=== PATIENT | female | born 1930 | race Two or more races ===

== ENCOUNTER 2017-04-13 11:53 | Emergency (ER) | payer MEDICARE, BC ==
[~2017-04-13] VITALS: Ht 152.4 cm; Wt 81.6 kg
--- NOTE | 2017-04-13 11:57 | NUR ---
pt is in room #2a. dr Pfeiffer evaluated the pt.
[2017-04-13] MEDS ORDERED: [UNRECOGNIZED DRUG - REMARK] (12:11)
[2017-04-13] MEDS ORDERED: [UNRECOGNIZED DRUG - REMARK] (12:11)
[2017-04-13] MEDS ORDERED: [UNRECOGNIZED DRUG - REMARK] (12:12)
[2017-04-13] MEDS ORDERED: [UNRECOGNIZED DRUG - REMARK] (12:12)
[2017-04-13] MEDS ORDERED: [UNRECOGNIZED DRUG - REMARK] (12:12)
[2017-04-13] MEDS ORDERED: [UNRECOGNIZED DRUG - REMARK] (12:12)
[2017-04-13] MEDS ORDERED: [UNRECOGNIZED DRUG - REMARK] (12:12)
[2017-04-13] MEDS ORDERED: [UNRECOGNIZED DRUG - REMARK] (12:12)
[2017-04-13] MEDS ORDERED: [UNRECOGNIZED DRUG - REMARK] (12:12)
--- NOTE | 2017-04-13 12:28 | NUR ---
pt was d/c to home. d/c instructions given to the pt.
[2017-04-13 12:29] VITALS: BP 139/71
== END 2017-04-13 12:56 | disposition home or self-care (01) ==
LOC: ER 12:20
DX: Z00.8 Encounter for other general examination (principal); I11.0 Hypertensive heart disease with heart failure; I50.9 Heart failure, unspecified; E03.9 Hypothyroidism, unspecified; E78.5 Hyperlipidemia, unspecified; M10.9 Gout, unspecified; W19.XXXA Unspecified fall, initial encounter; Y93.89 Activity, other specified; Y92.9 Unspecified place or not applicable; Y99.9 Unspecified external cause status
CPT/HCPCS: 99281; A4663